=== PATIENT | female | born 1970 | race Caucasian/White ===

== ENCOUNTER 2019-06-28 15:17 | Emergency (ER) | payer MEDICAID, OTHER ==
[~2019-06-28] VITALS: Ht 167.6 cm; Wt 97.0 kg
--- NOTE | 2019-06-28 15:49 | NUR ---
JOY JEFFERY, PT CALLED 911 MAKING SI STATEMENTS. PT TOOK "HANDFULL" OF KEFLEX 500MG EACH, IN ORDER TO OVERDOSE. PT REPORTS DRINKING A 5TH OF VODKA AND 40 OZ BEER TODAY WELL. 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 HERE FROM [place] TO AVOID MOTHER AND ONCOLOGIST, WHO ARE PUSHING PT TO AMPUTATE. PT UNDRESSED AND CHANGED INTO HOSPITAL GOWN. BELONGINGS BAGGED X2 BAGS, WITH LABELS ON THEM AND PLACED IN SECURE ED LOCKERS. PT AGREEABLE AT THIS TIME AND FOLLOWS DIRECTIONS. SIDE RAILS UP. PT AWARE OF NEED FOR UA. REPORT TO OLIVA SMITH.
[2019-06-28] MEDS ORDERED: SLEEPING PILL PO (16:05)
[2019-06-28] MEDS ORDERED: MUSCLE RELAXER PO (16:05)
[2019-06-28] MEDS ORDERED: SERTRALINE PO (16:05)
[2019-06-28] MEDS ORDERED: TRAMADOL (16:05)
[2019-06-28] MEDS ORDERED: MELOXICAM PO (16:05)
[2019-06-28] MEDS ORDERED: CEPH-368 PO (16:05)
[2019-06-28] MEDS ORDERED: OXYCONTIN PO (16:05)
[2019-06-28 16:11] LABS: BASOPHILS % (AUTO) 1 % (0-1); EOSINOPHILS # (AUTO) 0.04 x10^3/uL (0-0.4); EOSINOPHILS % (AUTO) 1 % (1-7); LYMPHOCYTES # (AUTO) 1.91 x10^3/uL (1-3.4); LYMPHOCYTES % (AUTO) 26 % (22-44); MD NO; MEAN CORPUSCULAR HEMOGLOBIN 27.5 pg (27.0-34.8); MEAN CORPUSCULAR HGB CONC 33.3 g/dL (32.4-35.8); MEAN CORPUSCULAR VOLUME 82.7 fL (80-100); MEAN PLATELET VOLUME 9.1 fL (7.4-10.4); MONOCYTES % (AUTO) 5 % (2-9); NEUTROPHILS # (AUTO) 4.99 x10^3/uL (1.8-6.8); NEUTROPHILS % (AUTO) 67 % (42-75); PLATELET COUNT 317 x10^3/uL (130-400); RED BLOOD COUNT 4.77 x10^6/uL (3.82-5.3); RED CELL DISTRIBUTION WIDTH 15.5 % (9.6-15.2)
[2019-06-28 16:20] LABS: ALANINE AMINOTRANSFERASE 36 U/L (12-78); ALBUMIN 3.5 g/dL (3.4-5.0); ANION GAP 6 mmol/L (5-15); CALCIUM 8.9 mg/dL (8.5-10.1); CHLORIDE 108 mmol/L (98-107); CREATININE 0.79 mg/dL (0.55-1.02)
[2019-06-28 16:21] LABS: SALICYLATE LEVEL < 1.7 mg/dL (2.8-20.0)
[2019-06-28 16:31] LABS: ALKALINE PHOSPHATASE 78 U/L (45-117); BILIRUBIN,TOTAL 0.8 mg/dL (0.2-1.0); TOTAL PROTEIN 7.9 g/dL (6.4-8.2)
--- NOTE | 2019-06-28 16:39 | NUR ---
PT STATES "I CAN'T PEE NOW." PT AWARE OF URINE SAMPLE.
--- NOTE | 2019-06-28 16:50 | NUR ---
PT INCONTINENT OF STOOL ON BED, SKIN CARE AND FULL LINEN CHANGED COMPLETED.
--- NOTE | 2019-06-28 16:54 | NUR ---
HOSPITAL BED ORDERED AT THIS TIME.
--- NOTE | 2019-06-28 17:06 | NUR ---
LAURA REQUESTED AT THIS TIME.
--- NOTE | 2019-06-28 17:33 | NUR ---
MEAL TRAY PROVIDED AT THIS TIME.
[2019-06-28] MEDS ORDERED: POTASSIUM CHLORIDE 20 MEQ TAB.ER.PRT ONE (17:40)
--- NOTE | 2019-06-28 17:43 | NUR ---
PT MEDICATED PER EMAR. PT TOLERATED WELL.
[2019-06-28] MEDS ORDERED: POTASSIUM CHLORIDE 20 MEQ TAB.ER.PRT PO ONE (18:00)
--- NOTE | 2019-06-28 19:00 | NUR ---
Report received from OLIVA Littlejohn. This RN to assume care.
--- NOTE | 2019-06-28 19:00 | NUR ---
REPORT GIVEN TO DERICK BAPTISTE.
--- NOTE | 2019-06-28 19:36 | NUR ---
Patient denied by Jo Ann from [facility] as patient is Self Pay.
--- NOTE | 2019-06-28 20:16 | NUR ---
Urine collected and sent to lab.
[2019-06-28 20:39] LABS: MICROSCOPIC NOT IND
[2019-06-28 20:43] LABS: CULTURE INDICATED? NO
[2019-06-28 20:52] LABS: AMPHETAMINE SCREEN, URINE Positive (Negative); BARBITURATE SCREEN, URINE Negative (Negative); BENZODIAZEPINE SCREEN, URINE Negative (Negative); CANNABINOID SCREEN, URINE Negative (Negative); COCAINE SCREEN, URINE Negative (Negative); METHADONE SCREEN, URINE Negative (Negative); OPIATE SCREEN, URINE Negative (Negative)
--- NOTE | 2019-06-28 21:54 | NUR ---
Registration unable to verify patients insurance as they state "the website is down." They will try to verify this later per Brie from registration. Insurance number (not insurance card) is in the possession of registration as well as patient has her insurance number memorized if registration is to lose this number.
--- NOTE | 2019-06-28 22:13 | NUR ---
Patient sleeping in [place]. Respirations even and unlabored. Room secured; sitter outside. Belongings locked in cabinet.
--- NOTE | 2019-06-28 23:28 | NUR ---
Patient sleeping in [place]. Respirations even and unlabored. Room secured; sitter outside. Belongings locked in cabinet.
--- NOTE | 2019-06-29 00:20 | NUR ---
BREAK RN: PT RESTING IN ROOM. NO ACUTE DISTRES NOTED. SITTER AT DOOR. WILL CONTINUE TO MONITOR WHILE PRIMARY RN IS ON BREAK.
--- NOTE | 2019-06-29 00:20 | NUR ---
Patient sleeping in [place]. Respirations even and unlabored. Room secured; sitter outside. Belongings locked in cabinet.
--- NOTE | 2019-06-29 00:44 | NUR ---
REPORT GIVEN TO OLIVA SEPULVEDA
--- NOTE | 2019-06-29 01:15 | NUR ---
Patient sleeping in [place]. Respirations even and unlabored. Room secured; sitter outside. Belongings locked in cabinet.
--- NOTE | 2019-06-29 02:06 | NUR ---
Registration still unable to verify patients insurance at this time, but state that the insurance verifying system should be up and running in the morning and it should be able to be updated at that time. Will fax patients chart to [facility], but this NEEDS to be updated on the morning of 06/28 and then refaxed to the [facility] facilities.
--- NOTE | 2019-06-29 02:11 | NUR ---
Patient sleeping in [place]. Respirations even and unlabored. Room secured; sitter outside. Belongings locked in cabinet.
--- NOTE | 2019-06-29 02:19 | NUR ---
Packet faxed to [facility] and conformation received, but again please see above note as packet needs to be refaxed after insurance is updated with correct insurance information.
--- NOTE | 2019-06-29 03:46 | NUR ---
Patient sleeping in [place]. Respirations even and unlabored. Room secured; sitter outside. Belongings locked in cabinet.
--- NOTE | 2019-06-29 04:28 | NUR ---
Patient sleeping in [place]. Respirations even and unlabored. Room secured; sitter outside. Belongings locked in cabinet.
[2019-06-29] MEDS ORDERED: FAMOTIDINE 20 MG TABLET ONE (05:04)
--- NOTE | 2019-06-29 05:24 | NUR ---
Patient sleeping in [place]. Respirations even and unlabored. Room secured; sitter outside. Belongings locked in cabinet.
[2019-06-29] MEDS ORDERED: FAMOTIDINE 20 MG TABLET PO ONE (05:30)
[2019-06-29] MEDS ORDERED: FAMOTIDINE 20 MG/2 ML IVPush ONE (05:30)
--- NOTE | 2019-06-29 06:51 | NUR ---
Patient sleeping in [place]. Respirations even and unlabored. Room secured; sitter outside. Belongings locked in cabinet.
--- NOTE | 2019-06-29 06:54 | NUR ---
Report given to OLIVA Keita.
--- NOTE | 2019-06-29 06:56 | NUR ---
REPORT RECEIVED FROM RICHARD BAPTISTE. PT SLEEPING ON GURNEY, CHEST RISE AND FALL OBSERVED.
--- NOTE | 2019-06-29 07:30 | NUR ---
VSS. PT RESTING ON [employer]. DIET TRAY ORDERED. WOULD LIKE TO SHOWER TODAY.
--- NOTE | 2019-06-29 07:31 | NUR ---
SITTER OUTSIDE ROOM. GARAGE DOORS DOWN. PT DOES NOT HAVE ACCESS TO PERSONAL BELONGINGS.
--- NOTE | 2019-06-29 08:00 | NUR ---
DIET TRAY DELIVERED. PT RESTING ON [facility], SITTER OUTSIDE ROOM. GARAGE DOORS DOWN.
--- NOTE | 2019-06-29 09:16 | NUR ---
PT RESTING ON GURNEY, SITTER OUTSIDE ROOM, GARAGE DOORS DOWN. NO ACCESS TO PERSONAL BELONGINGS.
--- NOTE | 2019-06-29 09:37 | NUR ---
PT OFFERED SHOWERED, WOULD LIKE TO LATER OR TOMORROW.
--- NOTE | 2019-06-29 10:35 | NUR ---
PT RESTING ON GURNEY, SITTER OUTSIDE ROOM, GARAGE DOORS DOWN. NO ACCESS TO PERSONAL BELONGINGS.
--- NOTE | 2019-06-29 11:00 | NUR ---
PT RETURNED TO ROOM AFTER SHOWER, PROVIDED NEW GOWN. RESTING ON GURNEY, SITTER OUTSIDE OF ROOM, GARAGE DOORS DOWN. DENIES FURTHER NEEDS AT THIS TIME.
--- NOTE | 2019-06-29 11:53 | NUR ---
LUNCH TRAY DELIVERED.
--- NOTE | 2019-06-29 13:05 | NUR ---
PT RESTING ON GURNEY, SITTER OUTSIDE ROOM, GARAGE DOORS DOWN.
--- NOTE | 2019-06-29 14:00 | NUR ---
PT RESTING ON GURNEY, SITTER OUTSIDE ROOM, GARAGE DOORS DOWN.
--- NOTE | 2019-06-29 15:09 | NUR ---
PT RESTING ON GURNEY, SITTER OUTSIDE ROOM, GARAGE DOORS DOWN.
--- NOTE | 2019-06-29 16:00 | NUR ---
PT RESTING ON GURNEY, SITTER OUTSIDE ROOM, GARAGE DOORS DOWN.
--- NOTE | 2019-06-29 16:51 | NUR ---
ED DIET TRAY ORDERED.
--- NOTE | 2019-06-29 17:14 | NUR ---
SAFETY DINNER TRAY DELIVERED TO PT.
--- NOTE | 2019-06-29 17:45 | NUR ---
PT RESTING ON GURNEY, SITTER OUTSIDE ROOM, GARAGE DOORS DOWN.
--- NOTE | 2019-06-29 18:53 | NUR ---
Report received from OLIVA Keita. This RN to assume care. Patient resting in [facility] with no complaints.
--- NOTE | 2019-06-29 18:54 | NUR ---
Sitter outside, room secure, belongings locked in cabinet.
--- NOTE | 2019-06-29 19:02 | NUR ---
Patient stating she feels like she does not want to be on this Earth and wants to take a bottle of pills.
--- NOTE | 2019-06-29 20:00 | NUR ---
Patient sleeping in hospital bed. Respirations even and unlabored. Sitter outside, room secured, belongings locked in cabinet.
--- NOTE | 2019-06-29 20:00 | NUR ---
Winston oliver in [facility] - 06/29/19 at 2253 by PAUL Patient sleeping in hospital bed. Respirations even and unlabored. Sitter outside, room secured, belongings locked in cabinet.
--- NOTE | 2019-06-29 21:01 | NUR ---
Patient sleeping in hospital bed. Respirations even and unlabored. Sitter outside, room secured, belongings locked in cabinet.
--- NOTE | 2019-06-29 22:55 | NUR ---
Patient sleeping in hospital bed. Respirations even and unlabored. Sitter outside, room secured, belongings locked in cabinet.
--- NOTE | 2019-06-29 23:44 | NUR ---
Patient sleeping in hospital bed. Respirations even and unlabored. Sitter outside, room secured, belongings locked in cabinet.
--- NOTE | 2019-06-30 00:15 | NUR ---
Patient sleeping in hospital bed. Respirations even and unlabored. Sitter outside, room secured, belongings locked in cabinet.
--- NOTE | 2019-06-30 01:09 | NUR ---
Patient sleeping in hospital bed. Respirations even and unlabored. Sitter outside, room secured, belongings locked in cabinet.
--- NOTE | 2019-06-30 02:22 | NUR ---
Patient sleeping in hospital bed. Respirations even and unlabored. Sitter outside, room secured, belongings locked in cabinet.
--- NOTE | 2019-06-30 03:29 | NUR ---
Patient sleeping in hospital bed. Respirations even and unlabored. Sitter outside, room secured, belongings locked in cabinet.
--- NOTE | 2019-06-30 04:35 | NUR ---
Patient resting in gurney. Respirations even and unlabored. Sitter outside, room secured, belongings locked in cabinet.
--- NOTE | 2019-06-30 05:32 | NUR ---
Patient sleeping in hospital bed. Respirations even and unlabored. Sitter outside, room secured, belongings locked in cabinet.
--- NOTE | 2019-06-30 06:19 | NUR ---
Patient sleeping in hospital bed. Respirations even and unlabored. Sitter outside, room secured, belongings locked in cabinet.
--- NOTE | 2019-06-30 06:40 | NUR ---
Patient ambulated to bathroom with assistance. Provided toothbrush and toothpaste. Patient states she takes Gabapentin 600 mg TID at home and requested it now for the pain in her leg.
[2019-06-30] MEDS ORDERED: GABAPENTIN 300 MG CAPSULE ONE ×3 (06:44→20:44)
[2019-06-30] MEDS: GABAPENTIN 300 MG CAPSULE PO SCH ×3 (06:46→21:00)
--- NOTE | 2019-06-30 06:51 | NUR ---
Report given to OLIVA Graff.
--- NOTE | 2019-06-30 06:51 | NUR ---
RECEIVED REPORT FROM DERICK. PT CALMLY LAYING ON HOSPTIAL BED WITH EYES CLOSED, NAD, RESPONDS APPROP TO STAFF, NO NEEDS AT THIS TIME, PT REMAINS IN SAFE ENVIRONMENT, SITTER IN VIEW.
--- NOTE | 2019-06-30 08:01 | NUR ---
PT SLEEPING CALMLY ON HOSPITAL BED, NAD WITH EQUAL CHEST RISE/FALL, NO NEEDS AT THIS TIME, PT REMAINS IN SAFE ENVIRONMENT, SITTER IN VIEW.
--- NOTE | 2019-06-30 09:00 | NUR ---
PT UPRIGHT ON HOSPTIAL BED AWAKE, CALM & COOPERATIVE, BREAKFAST TRAY GIVEN, NAD, RESPONDS APPROP TO STAFF, NO OTHER NEEDS AT THIS TIME, PT REMAINS IN SAFE ENVIRONMENT, SITTER IN VIEW.
--- NOTE | 2019-06-30 10:01 | NUR ---
PT CALMLY LAYING ON HOSPTIAL BED WITH EYES CLOSED, NAD, RESPONDS APPROP TO STAFF, NO NEEDS AT THIS TIME, PT REMAINS IN SAFE ENVIRONMENT, SITTER IN VIEW.
--- NOTE | 2019-06-30 11:02 | NUR ---
PT SLEEPING CALMLY ON HOSPITAL BED, NAD WITH EQUAL CHEST RISE/FALL, NO NEEDS AT THIS TIME, PT REMAINS IN SAFE ENVIRONMENT, SITTER IN VIEW.
--- NOTE | 2019-06-30 12:09 | NUR ---
TASK RN: PT GIVEN LUNCH TRAY. PT RESTING IN [facility] WITH SITTER AT BEDSIDE
--- NOTE | 2019-06-30 12:54 | NUR ---
REPORT GIVEN TO TARIQ
--- NOTE | 2019-06-30 12:55 | NUR ---
RECEIVED REPORT FROM DEENA BAPTISTE
[2019-06-30] MEDS ORDERED: TRAZODONE 50MG TABLET PO PRN (13:00)
--- NOTE | 2019-06-30 14:05 | NUR ---
PT ATE LUNCH. C/O LEFT LEG PAIN. THIGH WARM TO TOUCH. PT STATES SHE HAS BEEN HAVING SUICIDAL THOUGHTS AND CONSIDERED DROWNING HERSELF IN THE POOL WHEN SHE WAS IN [place].
--- NOTE | 2019-06-30 14:07 | NUR ---
PT IN DIRECT VIEW OF SITTER WITH EQUIPMENT IN ROOM SECURED BEHIND PULL DOWN DOOR.
[2019-06-30] MEDS ORDERED: ACETAMINOPHEN 500 MG TABLET PO ONE (15:00)
[2019-06-30] MEDS ORDERED: NAPROXEN 500 MG TABLET PO ONE (15:00)
[2019-06-30] MEDS ORDERED: NAPROXEN 500 MG TABLET ONE (16:27)
--- NOTE | 2019-06-30 16:31 | NUR ---
MEDICATED FOR LEFT LEG PAIN NOTED ON MAY ALONG WITH 1600 NEURONTIN
--- NOTE | 2019-06-30 17:43 | NUR ---
LYING QUIETLY IN BED IN DIRECT VIEW OF SITTER
--- NOTE | 2019-06-30 18:55 | NUR ---
REPORT TO ANNITA BAPTISTE
--- NOTE | 2019-06-30 18:59 | NUR ---
REPORT RECEIVED FROM OLIVA POTTER. THIS RN TO ASSUME CARE OF PT AT THIS TIME
[2019-06-30] MEDS ORDERED: METFORMIN PO (19:06)
[2019-06-30] MEDS ORDERED: LISINOPRIL PO (19:06)
[2019-06-30] MEDS ORDERED: RENAGEL PO (19:06)
--- NOTE | 2019-06-30 20:10 | NUR ---
PATIENT SLEEPING, RESPIRATIONS EVEN AND UNLABORED. NAD, SITTER AT DOOR. ROOM SECURE
--- NOTE | 2019-06-30 20:57 | NUR ---
PATIENT SLEEPING IN HOSPITAL BED, ATTEMPTED TO GIVE PATIENT GABAPENTIN PER EMAR, PATIENT DENIES WANTING IT AT THIS TIME. SITTER AT DOOR, ROOM SECURE
--- NOTE | 2019-06-30 22:00 | NUR ---
PATIENT SLEEPING, RESPIRATIONS EVEN AND UNLABORED. SITTER AT DOOR, ROOM SECURE
--- NOTE | 2019-06-30 22:58 | NUR ---
PATIENT SLEEPING, RESPIRATIONS EVEN AND UNLABORED. SITTER AT DOOR, ROOM SECURE
--- NOTE | 2019-07-01 | NUR ---
PATIENT SLEEPING, RESPIRATIONS EVEN AND UNLABORED. SITTER AT DOOR, ROOM SECURE
--- NOTE | 2019-07-01 00:44 | NUR ---
REPORT GIVEN TO OLIVA STRANGE. PLAN OF CARE DISCUSSED. SITTER AT DOOR. ROOM SECURE
--- NOTE | 2019-07-01 00:58 | NUR ---
report from Tere woodard. Pt sleeping. Even and unlabored breathing observed. sitter in view of pt
--- NOTE | 2019-07-01 02:31 | NUR ---
PT SLEEPING IN NAD. EVEN RISE AND FALL OF CHEST OBSERVED. SITTER IN VIEW OF PT.
--- NOTE | 2019-07-01 03:31 | NUR ---
PT SLEEPING IN NAD. EVEN RISE AND FALL OF CHEST OBSERVED. SITTER IN VIEW OF PT.
--- NOTE | 2019-07-01 04:45 | NUR ---
PT SLEEPING IN NAD. EVEN RISE AND FALL OF CHEST OBSERVED. SITTER IN VIEW OF PT.
--- NOTE | 2019-07-01 05:26 | NUR ---
ASSISTED PT TO BATHROOM. PT HAS NO OTHER NEEDS A THIS TIME. SITTER IN VIEW OF PT.
[2019-07-01] MEDS ORDERED: GABAPENTIN 300 MG CAPSULE ONE (06:10)
[2019-07-01] MEDS: GABAPENTIN 300 MG CAPSULE PO SCH ×3 (06:14→21:00)
--- NOTE | 2019-07-01 06:15 | NUR ---
PT REQUESTING PAIN MEDICATION. PT REFUSED NAPROXEN AT THIS TIME. PT GIVEN GABAPENTIN EARLY BECAUSE SHE MISSED HER EVENING DOSE. PT REQUESTING OXYCONTIN AND TOLD THAT IT HAS NOT BEEN ORDERED FOR HER. PT OK WITH THIS AT THIS TIME. SITTER IN VIEW OF PT
[2019-07-01] MEDS ORDERED: NAPROXEN 500 MG TABLET PO ONE (06:30)
--- NOTE | 2019-07-01 07:15 | NUR ---
REPORT FROM ALEXANDR. PT REQUESTING PAIN MED. VSS. LAURA PRESENT
[2019-07-01] MEDS ORDERED: NAPROXEN 500 MG TABLET ONE (08:12)
--- NOTE | 2019-07-01 08:30 | NUR ---
PT GIVEN MEAL TRAY AND PAIN MED. SITTER PRESENT. NO NEEDS AT THIS TIME
--- NOTE | 2019-07-01 09:30 | NUR ---
PT RESTING, NO NEEDS AT THIS TIME, GIVEN WATER.
--- NOTE | 2019-07-01 10:30 | NUR ---
PT RESTING, NO NEEDS A THIS TIME
--- NOTE | 2019-07-01 11:30 | NUR ---
PT RESTING, NO NEEDS A THIS TIME. SITTER PRESENT.
--- NOTE | 2019-07-01 12:11 | NUR ---
PT REQUESTING SHOWER. MEAL TRAY ORDERED. SHOWER SET UP FOR PT. SITTER PRESENT
--- NOTE | 2019-07-01 13:30 | NUR ---
PT SHOWERED, NEW LINENS PROVIDED. LAURA CHRISTIANSON
--- NOTE | 2019-07-01 14:30 | NUR ---
PT RESTING, WATER GIVEN. NO OTHER NEEDS. SITTER PRESENT
--- NOTE | 2019-07-01 15:24 | NUR ---
PT RESTING, SITTER PRESENT
--- NOTE | 2019-07-01 16:43 | NUR ---
PT SLEEPING, WATER GIVEN, NO NEEDS AT THIS TIME. SITTER PRESENT
--- NOTE | 2019-07-01 17:30 | NUR ---
PT RESTING. SITTER PRESENT
--- NOTE | 2019-07-01 18:22 | NUR ---
MEAL TRAY GIVEN , SITTER PRESENT
--- NOTE | 2019-07-01 18:50 | NUR ---
REPORT TO MICHAEL
--- NOTE | 2019-07-01 19:18 | NUR ---
PT RESTING ON HOSPITAL BED WITH EYES CLOSED, RESPIRATIONS EVEN AND NONLABORED. NAD. SITTER IN HALLWAY WITHIN LINE OF SIGHT. ROOM SECURED. DINNER MEAL PROVIDED.
--- NOTE | 2019-07-01 21:20 | NUR ---
PT KNOCKED FOOD OVER ONTO FLOOR, WOULD NOT RESPOND TO STAFF.
--- NOTE | 2019-07-01 21:43 | NUR ---
ATTEMPTED TO UPDATE VS ON PT. PT REFUSED STATED "GET OUT OF MY ROOM AND LEAVE ME ALONE". ROOM SEDCURED, SITTER IN HALLWAY WITHIN LINE OF SIGHT.
--- NOTE | 2019-07-01 22:40 | NUR ---
ATTEMPTED TO ASSESS PT AND UPDATE VS. PT AGAIN REFUSING STATES "PISS OFF". PT ON HOSPITAL BED, ROOM SECURED, SITTER IN HALLWAY WITHIN LINE OF SIGHT.
--- NOTE | 2019-07-02 02:14 | NUR ---
PT RESTING ON HOSPITAL BED WITH EYES CLOSED, RESPIRATIONS EVEN AND NONLABORED. ROOM SECURED, SITTER IN HALLWAY WITHIN LINE OF SIGHT.
--- NOTE | 2019-07-02 04:31 | NUR ---
PT RESTING ON HOSPITAL BED. ROOM SECURED, SITTER IN HALLWAY WITHIN LINE OF SIGHT.
--- NOTE | 2019-07-02 04:50 | NUR ---
REPORT TO ALEISHA Perry RN
--- NOTE | 2019-07-02 05:27 | NUR ---
PT UP TO RESTROOM NO ASSIST REQUIRED AT THIS TIME
--- NOTE | 2019-07-02 06:48 | NUR ---
REPORT FROM OLIVA MORAES. ASSUMING CARE AT THIS TIME.
--- NOTE | 2019-07-02 06:56 | NUR ---
07/01/2019 1500 TYLENOL AND 07/01/2019 1600 GABAPENTIN CHARTED BY PROXY PER NURSE'S NOTE. UNABLE TO DETERMINE IF 07/01/2019 2100 GABAPENTIN ADMINISTERED. CHARTED "TASK DETERMINATION UNKNOWN."
[2019-07-02] MEDS: GABAPENTIN 300 MG CAPSULE PO SCH (07:14)
--- NOTE | 2019-07-02 07:14 | NUR ---
PT LYING ON GURNEY, REFUSING VS, PHYSICAL EXAM, MEDICATIONS AND ALL INTERVENTIONS. PT STATES, "I'M NOT LETTING YOU TAKE MY VITALS AND I DON'T WANT ANYTHING. GET OUT." PT THEN REFUSED TO SPEAK OR ANSWER ANY OTHER QUESTIONS. SITTER AT DOORWAY. ROOM SECURED. BREAKFAST TRAY ORDERED.
--- NOTE | 2019-07-02 08:09 | NUR ---
PT RESTING IN SECURED ROOM WITH EYES CLOSED. BREAKFAST TRAY OFFERED AND DECLINED. NO NEEDS EXPRESSED. SITTER REMAINS AT DOORWAY.
--- NOTE | 2019-07-02 09:20 | NUR ---
PT RESTING IN SECURED ROOM WITH EYES CLOSED. NO NEEDS EXPRESSED. SITTER REMAINS AT DOORWAY.
--- NOTE | 2019-07-02 11:43 | NUR ---
PT RESTING IN SECURED ROOM WITH EYES CLOSED. NO NEEDS EXPRESSED. PT STILL REFUSES TO TALK WITH STAFF. LUNCH TRAY ORDERED. SITTER REMAINS AT DOORWAY.
--- NOTE | 2019-07-02 12:07 | NUR ---
PT OUT OF BED, YELLING AT STAFF AND ATTEMPTING TO WALK TO EXIT. SECURITY NOTIFIED AND HELPED PT BACK TO ROOM. PT STATING SHE JUST WANTS TO LEAVE. PT EDUCATED THAT SHE IS ON A HOLD AND IS WAITING FOR A BED AT [facility]. PT EDUCATED THAT HER BEHAVIOR WILL NOT BE TOLERATED. PT AGREEABLE AND STATES SHE JUST NEEDS SOME FOOD. DIET TRAY ALREADY ORDERED, BUT NOT YET HERE FROM [facility]. PT NOW RESTING IN SECURED ROOM. SITTER REMAINS AT DOORWAY.
--- NOTE | 2019-07-02 12:22 | NUR ---
PT RESTING IN SECURED ROOM. LUNCH TRAY PROVIDED. PT THANKFUL AND CALM AT THIS TIME. NO OTHER NEEDS EXPRESSED. SITTER REMAINS AT DOORWAY.
--- NOTE | 2019-07-02 12:50 | NUR ---
PT RESTING IN BED IN NAD. MEAL TRAY PROVIDED BUT PT HAS MINIMALLY ATE THE FOOD. PT HAS [place] [employer] THAT NEEDS TO BE TRANSFERRED TO [place] [employer]. LAUREN PSYCH FISH HATCHERY ASSISTANT TO EVALUATE PT AGAIN SOON.
--- NOTE | 2019-07-02 14:30 | NUR ---
PT RESTING IN NAD. PT CALM AND COOPERATIVE. PT BEING OBSERVED BY SITTER.
--- NOTE | 2019-07-02 15:15 | NUR ---
Stephie psych WARP KNITTER HELPER at bedside. Pt calm and cooperative.
[2019-07-02] MEDS ORDERED: GABAPENTIN 300 MG CAPSULE ONE (16:14)
--- NOTE | 2019-07-02 16:41 | NUR ---
PT ABLE TO FILL OUT FIRST THREE PAGES THAT REQUIRED A SIGNATURE OF THE [facility] MEDICAID FORMS. PACKET FAXED TO [id number] PER AMARIS CORDERO
--- NOTE | 2019-07-02 17:27 | NUR ---
BREAK RN: PT ARROUSED TO VERBAL STIM. ATTEMPTED TO OBTAIN BP, PT INITIALLY COOPERATIVE BUT AFTER PLACING THE BP CUFF SHE PULLED IT OFF AND SAID SHE DIDN'T WANT IT RIGHT NOW.
--- NOTE | 2019-07-02 19:31 | NUR ---
PT REFUSED VITAL SIGNS
--- NOTE | 2019-07-02 20:44 | NUR ---
PT ALLOWED THIS RN TO COMPLETE VITALS SIGNS AFTER INTERRUPTING HER REST. PT VSS. PT REFUSED TO EAT AT THIS TIME. PT BEING OBSERVED BY SITTER.
--- NOTE | 2019-07-02 22:00 | NUR ---
REPORT TO DERICK BAPTISTE.
--- NOTE | 2019-07-02 22:00 | NUR ---
Report received from OLIVA Walker. This RN to assume care. Patient sleeping in hospital bed. Respirations even and unlabored. Sitter outside, room secured, belongings in locked cabinet.
--- NOTE | 2019-07-02 23:27 | NUR ---
Patient sleeping in hospital bed. Respirations even and unlabored. Sitter outside, room secured, belongings in locked cabinet.
--- NOTE | 2019-07-03 00:34 | NUR ---
Patient sleeping in hospital bed. Respirations even and unlabored. Sitter outside, room secured, belongings in locked cabinet.
--- NOTE | 2019-07-03 01:59 | NUR ---
Patient sleeping in hospital bed. Respirations even and unlabored. Sitter outside, room secured, belongings in locked cabinet.
--- NOTE | 2019-07-03 03:43 | NUR ---
Patient sleeping in hospital bed. Respirations even and unlabored. Sitter outside, room secured, belongings in locked cabinet.
--- NOTE | 2019-07-03 04:36 | NUR ---
Patient sleeping in hospital bed. Respirations even and unlabored. Sitter outside, room secured, belongings in locked cabinet.
[2019-07-03] MEDS ORDERED: GABAPENTIN 300 MG CAPSULE ONE ×2 (06:17→20:20)
[2019-07-03] MEDS: GABAPENTIN 300 MG CAPSULE PO SCH ×2 (06:18→20:25)
--- NOTE | 2019-07-03 06:34 | NUR ---
Patient states she has been taking Naproxen the last few days while she's been at [facility], however there is no documentation. Patient states she thinks it will help.
--- NOTE | 2019-07-03 06:50 | NUR ---
Report given to OLIVA Josue.
[2019-07-03] MEDS: BUPROPION SR 100 MG TABLET PO SCH ×2 (09:01→16:33)
--- NOTE | 2019-07-03 09:01 | NUR ---
PT MEDICATED PER MAR. ATE ALL OF MEAL TRAY. SI REASSESSMENT COMPLETED, PT REMAINS HIGH RISK. SITTER IN PLACE, SI PRECAUTIONS OBSERVED
--- NOTE | 2019-07-03 11:47 | NUR ---
PT PROVIDED WITH TOOTHBRUSH AND PASTE TO BRUSH TEETH IN BR PER REQUEST. PT WITH NO OTHER NEEDS AT THIS TIME.
--- NOTE | 2019-07-03 12:25 | NUR ---
LUNCH RN: PT ENJOYING LUNCH, NO ASSISTNACE NEEDED. PT HAS NO NEEDS. SUICIDE PRECAUTIONS REMAIN, SITTER OUTSDIE ROOM FOR CONTINOUS MONITORING.
--- NOTE | 2019-07-03 14:58 | NUR ---
PING ANDERSON HERE TO TREVER PT, PT REFUSING TO SPEAK TO PING STATES "MY LEG HURTS TOO MUCH" PAIN MEDICATION ORDERED FOR PT BY BUSHRA, PT REFUSED MED STATES "ITS NOT GOING TO DO ANYTHING, ILL TALK TO ALI
[2019-07-03] MEDS ORDERED: NAPROXEN 500 MG TABLET PO ONE (16:30)
--- NOTE | 2019-07-03 17:04 | NUR ---
PHARM CALLED FOR GABAPENTIN, AWAITING THEM TO SEND. DINNER TRAY DELIVERED TO PT.
--- NOTE | 2019-07-03 19:03 | NUR ---
PT RESTING ON GURNEY, RESPIRATIONS EVEN AND UNLABORED, ROOM SECURED, SITTER AT DOORWAY FOR CONTINOUS MONITORING Addendum: 07/03/19 at 2025 by DENA PT STATED " YES I STILL HAVE SUICIDAL THOUGHTS"
--- NOTE | 2019-07-03 19:45 | NUR ---
PT UP TO SHOWER WITH SITTER AT HER SIDE, SI PRECAUTIONS MAINTAINED. HOUSEKEEPING TO CHANGE PT'S LINENS.
--- NOTE | 2019-07-03 20:01 | NUR ---
PT NOW RESTING IN BED, DENIES FURTHER NEEDS AT THIS TIEM, PHILIPP, ROOM SECURED, SITTER AT DOORWAY FOR CONTINOUS MONITORING
--- NOTE | 2019-07-03 20:25 | NUR ---
PT MEDICATED PER MAR
--- NOTE | 2019-07-03 21:35 | NUR ---
pt resting calmly, denies needs at this time, respirations even and unlabored, nad. sitter at doorway for continous monitoring
--- NOTE | 2019-07-03 22:29 | NUR ---
pt resting with eyes closed, nad, equal chest rise/fall observed, sitter at doorway for continous monitoring
--- NOTE | 2019-07-03 23:27 | NUR ---
pt resting with eyes closed, equal chest rise/fall observed, sitter at doorway for continous monitoring
--- NOTE | 2019-07-04 00:26 | NUR ---
TASK RN: RN CALLED [facility] TO FOLLOW UP ON PACKET AND POSSIBLE ACCEPTANCE. RN STATES THAT "THE DOCTOR HAS TO ACCEPT THE PATIENT AND THAT DOESN'T HAPPEN ON THE WEEKEND".
--- NOTE | 2019-07-04 00:38 | NUR ---
PT RESTING IN BED WITH EYES CLOSED, REPOSITIONED SELF, NOTED EQUAL CHEST RISE/FALL, SITTER AT DOORWAY FOR CONTINOUS MONITORING
--- NOTE | 2019-07-04 01:38 | NUR ---
pt resting with eyes closed, equal chest rise/fall observed, sitter at doorway for continous monitoring
--- NOTE | 2019-07-04 02:39 | NUR ---
pt resting with eyes closed, nad, equal chest rise/fall observed, sitter at doorway for continous monitoring
--- NOTE | 2019-07-04 03:58 | NUR ---
pt resting with eyes closed, equal chest rise/fall observed, sitter at doorway for continous monitoring
--- NOTE | 2019-07-04 05:00 | NUR ---
PT RESTING ON GURNEY WITH EYES CLOSED, NADN, ROOM SECURED, EQUAL CHEST RISE/FALL NOTED, SITTER AT DOORWAY FOR CONTINOUS MONITORING
--- NOTE | 2019-07-04 06:04 | NUR ---
pt stated "my right leg hurts so bad and it's hot, i need my oxycotin now, let the doctor know". erp updated, erp to place order
--- NOTE | 2019-07-04 06:22 | NUR ---
PT MEDICATED PER MAY. SITTER AT DOORWAY FOR CONTINOUS MONITORING
[2019-07-04] MEDS ORDERED: OxyconTIN ER 10 MG TAB.ER PO ONE ×2 (06:30)
--- NOTE | 2019-07-04 06:58 | NUR ---
REPORT GIVEN TO OLIVA WALKER
--- NOTE | 2019-07-04 07:00 | NUR ---
RECEIVED REPORT AND ASSUMED CARE. PT SLEEPING IN DIRECT VIEW OF SITTER WITH ALL ROOM EQUIPMENT SECURED BEHIND PULL DOWN DOORS
[2019-07-04] MEDS ORDERED: GABAPENTIN 300 MG CAPSULE ONE ×3 (08:28→21:53)
[2019-07-04] MEDS: GABAPENTIN 300 MG CAPSULE PO SCH ×3 (08:32→21:57)
[2019-07-04] MEDS: BUPROPION SR 100 MG TABLET PO SCH ×2 (08:33→14:50)
--- NOTE | 2019-07-04 08:33 | NUR ---
PROVIDED BREAKFAST AND MORNING MEDS GIVEN. PT C/O LEFT THIGH PAIN WITH SOME SWELLING NOTED.
--- NOTE | 2019-07-04 09:30 | NUR ---
UOB TO BATHROOM ACROSS MURPHY, NO ASSISTANCE NEEDED.
--- NOTE | 2019-07-04 10:50 | NUR ---
REPORT TO HERMANN BAPTISTE
--- NOTE | 2019-07-04 14:00 | NUR ---
PT HAD LUNCH TRAY. HAS DECLINED TO GET UP AND AMBULATE AROUND ER TODAY.
[2019-07-04] MEDS ORDERED: MELOXICAM 15 MG TABLET PO ONE (14:57)
--- NOTE | 2019-07-04 15:50 | NUR ---
PT C/O INCREASED LEG PAIN. STATES SHE SOMETIMES TAKES MELOXICAM FOR PAIN. ERP NOTIFIED, NEW ORDER NETTA.
--- NOTE | 2019-07-04 18:30 | NUR ---
DINNER TRAY WAS PROVIDED TO PT. PT HAS BEEN RESTING IN BED, AWAKENS EASILY, NO SIGNS OF DISTRESS.
--- NOTE | 2019-07-04 22:00 | NUR ---
PT HAS BEEN RESTING QUIETLY IN BED. AWAKENS EASILY. SCHEDULED GABAPENTIN GIVEN. NO OTHER NEEDS AT THIS TIME.
--- NOTE | 2019-07-04 23:43 | NUR ---
REPORT OF PT FROM OLIVA MCCRARY AND ASSUMING CARE OF PT AT THIS TIME. PT ASLEEP IN [facility] AT THIS TIME; NADN. EQUAL BILATERAL RISE AND FALL OF CHEST OBSERVED FROM DOORWAY. SITTER OUTSIDE OF PT ROOM FOR DIRECT OBSERVATION OF PT.
--- NOTE | 2019-07-05 00:39 | NUR ---
pt asleep in [facility] at this time; nadn. sitter outside of pt room for direct observation of pt. equal bilateral rise and fall of chest noted.
--- NOTE | 2019-07-05 01:51 | NUR ---
PT ASLEEP IN [facility] AT THIS TIME; PHILIPP. PT HAS SITTER OUTSIDE OF PT ROOM FOR DIRECT OBSERVATION OF PT. EQUAL BILATERAL RISE AND FALL OF CHEST NOTED WHILE PT SLEEPS.
--- NOTE | 2019-07-05 03:09 | NUR ---
pt awake and requesting milk. pt provided with juice instead as no milk was available. pt vss and updated in emr. pt reassessed for suicide scale and when asked if she's still feeling suicidal, pt states "it's too early to tell. I just started with the psych medications and I think they are helping." pt denies no other needs at this time. sitter outside of room for direct observation of pt.
--- NOTE | 2019-07-05 04:56 | NUR ---
pt resting in [facility] at this time. pt has refreshments and denies any other needs. cristóbal. sitter outside of pt room for direct observation of pt.
[2019-07-05] MEDS: GABAPENTIN 300 MG CAPSULE PO SCH ×4 (07:03→21:38)
--- NOTE | 2019-07-05 07:40 | NUR ---
MORNING SHIFT REPORT RECEIVED. PT SLEEPING IN BED, NO DISTRESS. SITTER REMAINS AT BEDSIDE, ROOM REMAINS SECURED. MEAL TRAY ORDERED. CONT TO MONITOR.
--- NOTE | 2019-07-05 09:21 | NUR ---
PT RESTING IN BED, NO DISTRESS. SITTER REMAINS AT BEDISDE, ROOM REMAINS SECURED. AWAITING PSYCH TRANSFER. CONT TO MONITOR.
--- NOTE | 2019-07-05 09:22 | NUR ---
MEAL TRAY DELIVERED TO PT.
[2019-07-05] MEDS ORDERED: GABAPENTIN 300 MG CAPSULE ONE ×3 (10:06→21:28)
[2019-07-05] MEDS: BUPROPION SR 100 MG TABLET PO SCH ×2 (10:08→16:01)
--- NOTE | 2019-07-05 10:14 | NUR ---
PT MEDICATED PER ORDERS. PT UP TO RR, USES WALKER, STEADY GAIT WITH WALKER. ROOM REMAINS SECURED, SITTER REMAINS AT BEDSIDE. CONT TO MONITOR.
--- NOTE | 2019-07-05 11:13 | NUR ---
PT RESTING IN BED. ASSISTED PT TO CALL [facility] WHERE SHE WAS STAYING TO HELP TRACK DOWN HER BELONGINGS. PT IS AWARE OF PLAN OF CARE, TO TRANSFER TO [facility]. MEAL TRAY ORDERED. SITTER AT BEDSIDE, ROOM REMAINS SECURED. CONT TO MONITOR.
--- NOTE | 2019-07-05 12:27 | NUR ---
PT GIVEN MEAL TRAY. PT REMAINS CALM AND COOPERATIVE. SITTER AT BEDSIDE, PT'S ROOM REMAINS SECURED. CONT TO MONITOR.
--- NOTE | 2019-07-05 12:50 | NUR ---
FABRIZIO COPPOLA NP AT BEDSIDE FOR PT ASSESSMENT.
--- NOTE | 2019-07-05 13:18 | NUR ---
REPORT GIVEN TO VIRIDIANA BAPTISTE.
--- NOTE | 2019-07-05 13:33 | NUR ---
pt resting calmly in bed, talking to sitter. pt has had lunch. will continue to monitor.
--- NOTE | 2019-07-05 14:12 | NUR ---
PT RESTING CALMLY IN BED AT THIS TIME. NO STATED NEEDS, SITTER AT DOOR.
--- NOTE | 2019-07-05 15:25 | NUR ---
PT RESTING COMFORTABLY IN BED, NO STATED NEEDS AT THIS TIME. WILL CONTINUE TO MONITOR. PT TALKING WITH SITTER AT TIMES
--- NOTE | 2019-07-05 16:18 | NUR ---
PT CONTINUES TO REST CALMLY IN BED. PT MEDICATED PER EMAR. PT IBRAHIM STAND CLEANED OF OLD FOOD AND CUPS. SITTER AT DOOR FOR FREQUENT OBS.
--- NOTE | 2019-07-05 17:17 | NUR ---
PT UP TO SHOWER WITH TECH ASSIST
--- NOTE | 2019-07-05 17:40 | NUR ---
PT FEELING REFRESHED AFTER SHOWER. PT WAS ABLE TO AMBULATE STEADILY WITH WALKER TO AND FROM SHOWER. PT SERVED DINNER. SITTER AT DOOR, PLACED FRESH LINENS ON BED. WILL CONTINUE TO MONITOR.
--- NOTE | 2019-07-05 18:16 | NUR ---
PT IS RESTING CALMLY IN BED. PT GIVEN MORE WATER PER PT REQUEST. SITTER AT DOOR. WILL CONTINUE TO MONITOR.
--- NOTE | 2019-07-05 19:00 | NUR ---
REPORT GIVEN TO MIKE BAPTISTE
[2019-07-05] MEDS ORDERED: TRAZODONE 50MG TABLET ONE (21:28)
--- NOTE | 2019-07-06 04:12 | NUR ---
pt resting in bed, pt a/o x4, pt denied any wants or needs at this time. pt room is si secured.
--- NOTE | 2019-07-06 05:54 | NUR ---
pt a sleep in bed, pt in no obvious distress. pt provided a warm blanket. pt room si secrued
--- NOTE | 2019-07-06 07:21 | NUR ---
REPORT RECEIVED FROM PALMER BAPTISTE. PT SLEEPING ON GURNEY, CHEST RISE AND FALL OBSERVED. ED SAFETY DIET TRAY ORDERED.
[2019-07-06 07:47] VITALS: BP 103/69
--- NOTE | 2019-07-06 07:49 | NUR ---
PT AMBULATED TO THE BR W/ A STEADY GAIT USING A WALKER. PROVIDED HYGIENE ITEMS. VSS.
--- NOTE | 2019-07-06 07:55 | NUR ---
MED KARINA FROM PHARMACY.
[2019-07-06] MEDS: BUPROPION SR 100 MG TABLET PO SCH (08:09)
--- NOTE | 2019-07-06 08:18 | NUR ---
BREAKFAST TRAY DELIVERED.
[2019-07-06] MEDS ORDERED: GABAPENTIN 300 MG CAPSULE ONE (08:43)
[2019-07-06] MEDS: GABAPENTIN 300 MG CAPSULE PO SCH (08:46)
--- NOTE | 2019-07-06 08:50 | NUR ---
PT MEDICATED PER EMAR. PT RESTING ON GURNEY. SITTER OUTSIDE OF ROOM, GARAGE DOORS DOWN.
--- NOTE | 2019-07-06 09:22 | NUR ---
PT SITTING UP AT BEDSIDE. SITTER OUTSIDE ROOM, GARAGE DOORS DOWN. WILL CONTINUE TO MONITOR.
--- NOTE | 2019-07-06 10:27 | NUR ---
PT SITTING UP AT BEDSIDE. SITTER OUTSIDE ROOM, GARAGE DOORS DOWN. WILL CONTINUE TO MONITOR.
--- NOTE | 2019-07-06 11:13 | NUR ---
PT SLEEPING ON HOSPITAL BED, CHEST RISE AND FALL OBSERVED. SITTER OUTSIDE ROOM, GARAGE DOORS DOWN FOR SAFETY.
--- NOTE | 2019-07-06 11:21 | NUR ---
ED SAFETY DIET TRAY ORDERED
--- NOTE | 2019-07-06 11:24 | NUR ---
ALICIA FROM [facility] CALLED & ACCEPTED PT, THROUGHPUT RN AWARE, PRIMARY RN GIVING REPORT AT THIS TIME,. Addendum: 07/06/19 at 1125 by JAQUELIN ALICIA FROM [facility] CALLED & ACCEPTED PT FOR 1245 TODAY, THROUGHPUT RN AWARE, PRIMARY RN GIVING REPORT AT THIS TIME.
--- NOTE | 2019-07-06 11:30 | NUR ---
RE[place] [facility] [place] BE READY TO ACCEPT PT AT 12:45PM TODAY.
--- NOTE | 2019-07-06 12:10 | NUR ---
SAFETY ED DIET TRAY DELIVERED.
--- NOTE | 2019-07-06 12:48 | NUR ---
PT TRANSFERED TO [facility] BY EMS AT THIS TIME.
== END 2019-07-06 12:49 ==
LOC: ED 17:25
DX: R45.851 Suicidal ideations (principal); F10.129 Alcohol abuse with intoxication, unspecified; T36.8X1A Poisoning by other systemic antibiotics, accidental (unintentional), initial encounter; R94.31 Abnormal electrocardiogram [ECG] [EKG]; Y92.9 Unspecified place or not applicable
CPT/HCPCS: 36415; 80053; 80307; 81003; 84443; 84703; 85025; 93005; 99285

== ENCOUNTER 2019-09-07 01:23 | Emergency (ER) | payer SELFPAY ==
[~2019-09-07] VITALS: Ht 160 cm; Wt 80.0 kg
[~2019-09-07 01:23] MED LIST: CEPH-368 PO; LISINOPRIL PO; MELOXICAM PO; METFORMIN PO; MUSCLE RELAXER PO; OXYCONTIN PO; RENAGEL PO; SERTRALINE PO; SLEEPING PILL PO; TRAMADOL
[2019-09-07 01:26] VITALS: BP 122/80
--- NOTE | 2019-09-07 01:29 | NUR ---
Pt found lying in middle of road for rpd and emy and uncooperative to their assessment. [facility] states pt eventually talked and was assessed. Found a+ox4 and neuro fully intact. FBS of 97 noted by emy. This rn attempted to assess pt and pt would not answer questions. This rn reassured pt and pt able to be assessed. A+ox4, denies any medical complaints. Monitoring not intact due to pt refusal. "Dont touch my arm." as she pulled her arm away from this rn.
== END 2019-09-07 01:52 | disposition home or self-care (01) ==
LOC: ED 01:40
DX: Z00.00 Encounter for general adult medical examination without abnormal findings (principal)
CPT/HCPCS: 99283

== ENCOUNTER 2020-08-16 00:43 | Inpatient (IN) | payer MEDICAID ==
[~2020-08-16] VITALS: Ht 165.1 cm; Wt 91.9 kg
[2020-08-16] MEDS ORDERED: ONDANSETRON ODT 4 MG PO PRN (01:30)
[2020-08-16] MEDS ORDERED: ACETAMINOPHEN 325 MG TABLET PO PRN (01:30)
[2020-08-16] MEDS ORDERED: POLYETHYLENE GLYCOL 17 GM PACKET PO PRN (01:30)
[2020-08-16] MEDS ORDERED: BISACODYL 10 MG SUPP PR PRN (01:30)
[2020-08-16] MEDS ORDERED: PLEASE ENTER HEIGHT AND WEIGHT MC SCH (03:00)
[2020-08-16 03:35] VITALS: BP 113/79
[2020-08-16 03:48] VITALS: BP 113/79
[2020-08-16 07:04] LABS: CHOL/HDL RATIO 3.7; FREE T4 (FREE THYROXINE) 1.26 ng/dL (0.76-1.46)
[2020-08-16 07:47] VITALS: BP 110/75
[2020-08-16] MEDS ORDERED: TIZANIDINE 4MG TABLET ONE (15:42)
[2020-08-16] MEDS: DULOXETINE 30 MG CAPSULE.DR PO SCH (15:48)
[2020-08-16] MEDS: TIZANIDINE 4MG TABLET PO SCH ×2 (15:54→21:01)
[2020-08-16 19:50] VITALS: BP_SYST 81; BP_SYST 87; BP_DIAS 54; BP_DIAS 66
[2020-08-16 20:50] VITALS: BP 97/64
[2020-08-16] MEDS ORDERED: TRAZODONE 50MG TABLET PO SCH (21:00)
[2020-08-16] MEDS ORDERED: TIZANIDINE 4MG TABLET PO SCH (21:00)
[2020-08-16] MEDS: DOCUSATE 100 MG CAPSULE PO PRN (21:01)
[2020-08-17 07:07] VITALS: BP 102/69
[2020-08-17] MEDS: DULOXETINE 30 MG CAPSULE.DR PO SCH (10:51)
[2020-08-17] MEDS: TIZANIDINE 4MG TABLET PO SCH ×2 (10:51→20:29)
[2020-08-17 19:01] VITALS: BP 117/74
[2020-08-17] MEDS ORDERED: TRAZODONE 50MG TABLET PO SCH (21:00)
[2020-08-18 07:11] VITALS: BP 104/68
[2020-08-18] MEDS: DULOXETINE 30 MG CAPSULE.DR PO SCH (08:57)
[2020-08-18] MEDS: TIZANIDINE 4MG TABLET PO SCH (08:57)
[2020-08-18] MEDS: MELATONIN 5 MG TABLET PO SCH (20:17)
[2020-08-19 07:03] VITALS: BP 105/70
[2020-08-19] MEDS: DULOXETINE 30 MG CAPSULE.DR PO SCH (08:31)
[2020-08-19] MEDS: CYCLOBENZAPRINE 10 MG TABLET PO PRN (09:10)
[2020-08-19 19:17] VITALS: BP 121/74
[2020-08-19] MEDS: MELATONIN 5 MG TABLET PO SCH (20:06)
[2020-08-20 07:37] VITALS: BP 102/68
[2020-08-20] MEDS: DULOXETINE 30 MG CAPSULE.DR PO SCH (08:02)
[2020-08-20] MEDS: CYCLOBENZAPRINE 10 MG TABLET PO PRN ×3 (08:15→19:57)
[2020-08-20 19:28] VITALS: BP 105/64
[2020-08-20] MEDS: MELATONIN 5 MG TABLET PO SCH (19:57)
[2020-08-21 07:26] VITALS: BP 102/68
[2020-08-21] MEDS: DULOXETINE 30 MG CAPSULE.DR PO SCH (08:11)
[2020-08-21] MEDS: CYCLOBENZAPRINE 10 MG TABLET PO PRN ×2 (08:17→22:37)
[2020-08-21] MEDS: MELATONIN 5 MG TABLET PO SCH (22:38)
[2020-08-22 07:45] VITALS: BP 96/64
[2020-08-22] MEDS: CYCLOBENZAPRINE 10 MG TABLET PO PRN ×3 (08:30→22:14)
[2020-08-22] MEDS: DULOXETINE 30 MG CAPSULE.DR PO SCH (08:30)
[2020-08-22] MEDS: DOCUSATE 100 MG CAPSULE PO PRN (10:10)
[2020-08-22 21:00] VITALS: BP 115/69
[2020-08-22] MEDS: MELATONIN 5 MG TABLET PO SCH (22:15)
[2020-08-23 07:32] VITALS: BP 104/68
[2020-08-23] MEDS: CYCLOBENZAPRINE 10 MG TABLET PO PRN (08:08)
[2020-08-23] MEDS: DULOXETINE 30 MG CAPSULE.DR PO SCH (08:08)
[2020-08-23] MEDS ORDERED: MELA5TAB14 PO (13:37)
[2020-08-23] MEDS ORDERED: CYCL10TA2 PO (13:37)
[2020-08-23] MEDS ORDERED: DULO30CA2 PO (13:37)
[2020-08-23] MEDS ORDERED: ACET325T26 PO (13:37)
== END 2020-08-23 16:34 | disposition home or self-care (01) | DRG 885 ==
LOC: 3E 02:25
PROVIDERS: ADMIT Psychiatry & Neurology Psychosomatic Medicine; ATTEND Psychiatry & Neurology Psychosomatic Medicine
DX: F33.2 Major depressive disorder, recurrent severe without psychotic features (principal); R45.851 Suicidal ideations; Z88.3 Allergy status to other anti-infective agents; G47.00 Insomnia, unspecified; Z59.0 Homelessness; Z79.899 Other long term (current) drug therapy
CPT/HCPCS: 36415; 71045; 80061; 82607; 84439; 84443; 93005

== ENCOUNTER 2020-09-16 03:43 | Emergency (ER) | payer MEDICAID ==
[~2020-09-16] VITALS: Ht 167.6 cm; Wt 88.0 kg
[~2020-09-16 03:43] MED LIST changes: +ACET325T26 PO; +CYCL10TA2 PO; +DULO30CA2 PO; +MELA5TAB14 PO
--- NOTE | 2020-09-16 03:58 | NUR ---
BIB EMS FROM [facility]. PT STATES AFTER HER SECOND BEER SHE WAS HAVING TROUBLE CATCHING HER BREATH AND HAVING SOME CHEST PAIN. PT A/O X 4, EKG DONE, PT PLACED ON ALL MONITORS. PIV PLACED BY EMS. VSS, SAFTEY MEASURES IN PLACE, CALL LIGHT WITHIN REACH
[2020-09-16 04:56] LABS: BASOPHILS % (AUTO) 1 % (0-1); EOSINOPHILS % (AUTO) 1 % (1-7); LYMPHOCYTES % (AUTO) 32 % (22-44); MEAN CORPUSCULAR HEMOGLOBIN 28.5 pg (27.0-34.8); MEAN CORPUSCULAR HGB CONC 33.4 g/dL (32.4-35.8); MEAN PLATELET VOLUME 8.1 fL (7.4-10.4); MONOCYTES % (AUTO) 7 % (2-9); NEUTROPHILS % (AUTO) 59 % (42-75); PLATELET COUNT 340 x10^3/uL (130-400); RED BLOOD COUNT 4.61 x10^6/uL (3.82-5.3); RED CELL DISTRIBUTION WIDTH 15.5 % (9.6-15.2)
[2020-09-16 05:03] LABS: ALBUMIN 3.1 g/dL (3.4-5.0); ANION GAP 5 mmol/L (5-15); CALCIUM 8.7 mg/dL (8.5-10.1); CHLORIDE 105 mmol/L (98-107)
[2020-09-16 05:09] LABS: CREATININE 0.75 mg/dL (0.55-1.02); TROPONIN I < 0.015 ng/mL (0.000-0.045)
[2020-09-16 06:07] VITALS: BP 123/76
== END 2020-09-16 06:10 | disposition home or self-care (01) ==
LOC: ED 06:00
DX: R06.00 Dyspnea, unspecified (principal); F10.120 Alcohol abuse with intoxication, uncomplicated; R94.31 Abnormal electrocardiogram [ECG] [EKG]; Y90.0 Blood alcohol level of less than 20 mg/100 ml
CPT/HCPCS: 36415; 71045; 80048; 80320; 82040; 83880; 84484; 85025; 93005; 99285; G0480

== ENCOUNTER 2020-09-22 10:50 | Inpatient (IN) | payer MEDICAID ==
[~2020-09-22] VITALS: Ht 167.6 cm; Wt 91.2 kg
[2020-09-22] MEDS ORDERED: ACETAMINOPHEN 325 MG TABLET PO PRN (12:30)
[2020-09-22] MEDS ORDERED: ONDANSETRON ODT 4 MG PO PRN (12:30)
[2020-09-22] MEDS ORDERED: BISACODYL 10 MG SUPP PR PRN (12:30)
[2020-09-22] MEDS ORDERED: POLYETHYLENE GLYCOL 17 GM PACKET PO PRN (12:30)
[2020-09-22] MEDS ORDERED: DOCUSATE 100 MG CAPSULE PO PRN (12:30)
[2020-09-22] MEDS ORDERED: PLEASE ENTER HEIGHT AND WEIGHT MC SCH ×2 (13:00→18:30)
[2020-09-22 16:00] VITALS: BP 134/82
[2020-09-22 20:28] VITALS: BP 134/78
[2020-09-23 07:27] VITALS: BP 114/77
[2020-09-23] MEDS: HYDROCORTISONE CRM 1%, 30GM TP PRN (09:10)
[2020-09-23 11:32] LABS: FREE T4 (FREE THYROXINE) 1.44 ng/dL (0.76-1.46)
[2020-09-23 13:31] LABS: MICROSCOPIC AUTO
[2020-09-23 19:27] VITALS: BP 115/75
[2020-09-24 07:42] VITALS: BP 117/78
[2020-09-24] MEDS: HYDROCORTISONE CRM 1%, 30GM TP PRN (09:38)
[2020-09-25 07:32] VITALS: BP 112/65
[2020-09-25] MEDS: DULOXETINE 30 MG CAPSULE.DR PO SCH (13:16)
[2020-09-26 07:22] VITALS: BP 109/69
[2020-09-26] MEDS: DULOXETINE 30 MG CAPSULE.DR PO SCH (08:00)
[2020-09-26 19:09] VITALS: BP 114/80
[2020-09-27 07:23] VITALS: BP 121/79
[2020-09-27] MEDS: DULOXETINE 30 MG CAPSULE.DR PO SCH (07:33)
[2020-09-27] MEDS: GABAPENTIN 300 MG CAPSULE PO PRN (11:58)
[2020-09-28 07:47] VITALS: BP 102/76
[2020-09-28] MEDS: DULOXETINE 30 MG CAPSULE.DR PO SCH (09:00)
[2020-09-29 07:13] VITALS: BP 100/70
[2020-09-29] MEDS: GABAPENTIN 300 MG CAPSULE PO PRN (07:38)
[2020-09-29] MEDS: DULOXETINE 30 MG CAPSULE.DR PO SCH (07:39)
[2020-09-29 19:32] VITALS: BP 103/70
[2020-09-30 07:41] VITALS: BP 108/76
[2020-09-30] MEDS: DULOXETINE 30 MG CAPSULE.DR PO SCH (09:00)
[2020-09-30] MEDS ORDERED: DULO30CA2 PO (15:18)
[2020-09-30] MEDS ORDERED: GABA300C PO (15:18)
== END 2020-09-30 18:00 | disposition home or self-care (01) | DRG 885 ==
LOC: UNDOADMIN 10:50 → 3E 10:50
PROVIDERS: ADMIT Psychiatry & Neurology Psychosomatic Medicine; ATTEND Psychiatry & Neurology Psychosomatic Medicine
DX: F33.2 Major depressive disorder, recurrent severe without psychotic features (principal); F41.9 Anxiety disorder, unspecified; G47.00 Insomnia, unspecified; I10 Essential (primary) hypertension; B88.8 Other specified infestations; E11.9 Type 2 diabetes mellitus without complications; F12.10 Cannabis abuse, uncomplicated; Z59.0 Homelessness; Z79.899 Other long term (current) drug therapy; Z87.891 Personal history of nicotine dependence; Z79.891 Long term (current) use of opiate analgesic; Z79.01 Long term (current) use of anticoagulants; Z91.041 Radiographic dye allergy status; Z85.89 Personal history of malignant neoplasm of other organs and systems
CPT/HCPCS: 36415; 81001; 82140; 83735; 84439; 84443; 87086; 93005; Q0177

== ENCOUNTER 2020-10-22 01:10 | Observation (INO) | payer MEDICAID ==
[~2020-10-22] VITALS: Ht 167.6 cm; Wt 95.3 kg
[~2020-10-22 01:10] MED LIST changes: +GABA300C PO
[2020-10-22 01:15] VITALS: BP 115/66
--- NOTE | 2020-10-22 05:13 | NUR ---
PT STATES SHE WAS HEARING VOICES TO RUN DOWN THE STREET, KICK THE DOG, GO TO THE NEIGHBORS. PT GOT SCARED AND BEGAN TO THINK ABOUT HER CANCER. PT REPORTS FALLING AT HOUSE AND HER LEG HURTS. PT STATES IT STINGS TO URINATE. ATTACHED TO MONITORS, VSS, NADN. BED IN LOW POSITION, RAILS ENGAGED. CALL LIGHT ON LAP.
--- NOTE | 2020-10-22 05:17 | NUR ---
PT STATES SHE HAS THOUGHTS OF HURTING HERSELF, HAS NO PLAN BUT STATES SHE COULD THINK OF MANY IF SHE WANTED TO. HAS NOT INTENDED ON ACTING ON ONE TODAY. STATES SHE TRIED TO DROWN HERSELF IN LAST 3 MONTHS.
[2020-10-22 06:53] LABS: MICROSCOPIC AUTO
[2020-10-22 07:04] LABS: AMPHETAMINE SCREEN, URINE Negative (Negative); BARBITURATE SCREEN, URINE Negative (Negative); BENZODIAZEPINE SCREEN, URINE Negative (Negative); CANNABINOID SCREEN, URINE Negative (Negative); COCAINE SCREEN, URINE Negative (Negative); METHADONE SCREEN, URINE Negative (Negative); OPIATE SCREEN, URINE Negative (Negative)
[2020-10-22 07:26] LABS: BASOPHILS % (AUTO) 0 % (0-1); EOSINOPHILS % (AUTO) 1 % (1-7); LYMPHOCYTES % (AUTO) 22 % (22-44); MEAN CORPUSCULAR HEMOGLOBIN 28.6 pg (27.0-34.8); MEAN CORPUSCULAR HGB CONC 33.1 g/dL (32.4-35.8); MEAN PLATELET VOLUME 7.8 fL (7.4-10.4); MONOCYTES % (AUTO) 7 % (2-9); NEUTROPHILS % (AUTO) 68 % (42-75); PLATELET COUNT 202 x10^3/uL (130-400); RED BLOOD COUNT 4.19 x10^6/uL (3.82-5.3); RED CELL DISTRIBUTION WIDTH 18.6 % (9.6-15.2)
--- NOTE | 2020-10-22 07:30 | NUR ---
REPORT FROM NOC RN, PT RESTING ON [place] AT THIS TIME, NO NEEDS. IN SECURE RM WITH SITTER IN PLACE. BREAKFAST TRAY ORDERED.
[2020-10-22 07:35] LABS: ALANINE AMINOTRANSFERASE 27 U/L (12-78); ALBUMIN 2.7 g/dL (3.4-5.0); ANION GAP 7 mmol/L (5-15); CALCIUM 8.4 mg/dL (8.5-10.1); CHLORIDE 106 mmol/L (98-107); CREATININE 0.55 mg/dL (0.55-1.02)
[2020-10-22 07:36] LABS: SALICYLATE LEVEL < 1.7 mg/dL (2.8-20.0)
[2020-10-22 07:37] LABS: ALKALINE PHOSPHATASE 74 U/L (45-117); BILIRUBIN,TOTAL 1.4 mg/dL (0.2-1.0); TOTAL PROTEIN 7.2 g/dL (6.4-8.2)
--- NOTE | 2020-10-22 09:00 | NUR ---
PT GIVEN MEAL TRAY, PROVIDED WARM BLANKET PER REQUESNT, SITTER IN PLACE, NO OTHER NEEDS
--- NOTE | 2020-10-22 10:30 | NUR ---
REC'D RPT FROM [facility]. ASSUMED PT CARE. PT PLACED ON HOSPITAL BED, SITTER PRESENT WITH PT IN DIRECT LINE OF SIGHT. NAD NOTED. CALL LIGHT W/I REACH
--- NOTE | 2020-10-22 10:35 | NUR ---
Throughput: Pt medically clear by Dr Jung, L2K by Dr Jung. Faxed packet and text to [facility] for consideration.
--- NOTE | 2020-10-22 11:00 | NUR ---
PT VSS, C/O LEFT LEG PAIN, XRAY REVIEWED AND NO NEW FX NOTED. PT INFORMED OF RESULTS. PT STATES SHE IS CONTINUING TO HEAR VOICES BUT DECLINES TO ANSE Addendum: 10/22/20 at 1102 by SHARON PT VERBALIZES SHE IS STILL "HEARING VOICES" BUT DECLINES TO ANSWER ANY FURTHER PROBING QUESTIONS. CALL [facility] W/I HALLIE KELLER PROVIDER PER PT REQUEST. PROVIDER NOTIFIED OF PT LEG PAIN 10/10 AND REQUEST FOR MOTRIN.
[2020-10-22] MEDS ORDERED: IBUPROFEN 800 MG TABLET PO ONE (11:30)
[2020-10-22] MEDS ORDERED: IBUPROFEN 800 MG TABLET ONE (11:32)
--- NOTE | 2020-10-22 11:37 | NUR ---
PT MED NOTED FOR LEFT LEG/THIGH PAIN 09/09, ICE PACK PROVIDED. LEFT LATERAL THIGH +EDEMA AND WARM TO THE TOUCH. DR. WATSON AWARE
--- NOTE | 2020-10-22 11:48 | NUR ---
Throughput: [facility] declined. Packet faxed to all other facilities.
--- NOTE | 2020-10-22 12:06 | NUR ---
[facility] accepted pt.
--- NOTE | 2020-10-22 12:25 | NUR ---
[facility] SCHAEFER DENIES PT DUE TO INSURANCE REASONS
--- NOTE | 2020-10-22 12:40 | NUR ---
conformation number [id number]
--- NOTE | 2020-10-22 13:35 | NUR ---
PT D/C TO [facility]. BELONGINGS BAGS X 2 WITH PT. PT CONFIRMS RECIEPT OF ALL BELONGINGS
--- NOTE | 2020-10-22 13:36 | NUR ---
LATE ENTRY FOR 1200, SBAR RPT TO LEILANI AT [facility] FOR POSSIBLE ACCEPTANCE.
== END 2020-10-22 14:12 | disposition home or self-care (01) ==
LOC: ED 05:38 → EDIP 10:35
PROVIDERS: ADMIT Emergency Medicine; ATTEND Emergency Medicine
DX: F33.2 Major depressive disorder, recurrent severe without psychotic features (principal); R45.851 Suicidal ideations; S70.12XA Contusion of left thigh, initial encounter; W19.XXXA Unspecified fall, initial encounter; Y93.89 Activity, other specified; Y92.89 Other specified places as the place of occurrence of the external cause; Z79.899 Other long term (current) drug therapy
CPT/HCPCS: 36415; 73552; 80053; 80299; 80307; 80320; 80329; 81001; 85025; 87077; 87086; 99284; G0378; G0480